=== PATIENT | female | born 2005 | race Caucasian/White ===

== ENCOUNTER 2024-06-16 18:00 | Emergency (ER) | payer BC ==
[2024-06-16] MEDS: Acetaminophen 500 MG Tab PO ONE (19:20)
== END 2024-06-16 20:57 | disposition home or self-care (01) ==
LOC: MW.ED 18:00
DX: J06.9 Acute upper respiratory infection, unspecified (principal); Z75.8 Other problems related to medical facilities and other health care
CPT/HCPCS: 93005; 99283; A9270